=== PATIENT | female | born 1965 | race Caucasian/White ===

== ENCOUNTER → 2017-02-21 | Outpatient (CLI) | payer OTHER ==
[~2017-02-21] MED LIST: BUSP15TA PO; BUSP30TA PO; CABE0.5T HOMEMEDPO; CYCL-259 PO; DIAZ5TAB PO; DIAZ5TAB4 PO; FENT1PAT77 TP; HYDR-3241 PO; HYDR-3307 PO; IBUP-1222 PO; IBUP200C; LORA10TA72 PO; LUBI24CA5 PO; MELO7.5T5 PO; METH-356 PO; OXYM20TA14 PO; PROM25TA10 PO; SERT100T; THYR48.7 PO; THYR90TA PO
== END ==
LOC: STAR 13:04
PROVIDERS: ATTEND Surgery
DX: Z02.9 Encounter for administrative examinations, unspecified (principal)

== ENCOUNTER 2017-02-24 08:33 | Day surgery (SDC) | payer OTHER ==
[2017-02-21 14:13] LABS: HEMATOCRIT 41.3 % (34.6-47.8); HEMOGLOBIN 13.3 g/dL (11.7-16.4); WHITE BLOOD COUNT 7.4 x10^3/uL (3.4-10)
[2017-02-21 14:24] LABS: ASPARTATE AMINO TRANSFERASE 35 U/L (15-37); BLOOD UREA NITROGEN 10 mg/dL (7-18)
[~2017-02-24] VITALS: Ht 160 cm; Wt 46.3 kg
[~2017-02-24 08:33] MED LIST changes: +BUPIVACAINE/PF-EPI 0.5% 1:200K ONE
[2017-02-24] MEDS ORDERED: MIDAZOLAM 1 MG/ML, 2ML ONE (09:11)
[2017-02-24] MEDS ORDERED: FENTANYL PF 250 MCG/5ML ONE (09:11)
[2017-02-24 09:23] VITALS: BP 97/62
[2017-02-24] MEDS ORDERED: LACTATED RINGERS 1,000 ML IV SCH (09:27)
[2017-02-24] MEDS ORDERED: ROCURONIUM 10 MG/ML ONE (10:57)
[2017-02-24] MEDS ORDERED: GLYCOPYRROLATE 0.2MG/1ML ONE (10:57)
[2017-02-24] MEDS ORDERED: ONDANSETRON 2MG/ML, 2ML ONE (10:57)
[2017-02-24] MEDS ORDERED: CEFAZOLIN 1,000 MG ONE (10:57)
[2017-02-24] MEDS ORDERED: DEXAMETHASONE 4 MG/ML, 1ML ONE (10:57)
[2017-02-24] MEDS ORDERED: PROPOFOL 10 MG/ML, 20ML ONE (10:57)
[2017-02-24] MEDS ORDERED: NEOSTIGMINE 1 MG/ML, 10ML ONE (10:57)
[2017-02-24] MEDS ORDERED: hydrALAzine 20 MG/ML, 1ML IV PRN (11:00)
[2017-02-24] MEDS ORDERED: PROMETHAZINE 25 MG/ML, 1ML IV PRN (11:00)
[2017-02-24] MEDS ORDERED: ONDANSETRON 2MG/ML, 2ML IVPush PRN (11:00)
[2017-02-24] MEDS ORDERED: OXYcodone 5 MG/5 ML ORAL.SOL UDC PO PRN (11:00)
[2017-02-24] MEDS ORDERED: METOCLOPRAMIDE 5 MG/ML, 2ML IV PRN (11:00)
[2017-02-24] MEDS ORDERED: LABETALOL 5MG/ML, 20ML IV PRN (11:00)
[2017-02-24] MEDS ORDERED: FENTANYL PF 100 MCG/2ML ONE (11:54)
[2017-02-24] MEDS ORDERED: ACETAMINOPHEN 650 MG/20.3 ML UDC ONE (11:54)
[2017-02-24] MEDS ORDERED: OXYcodone 5 MG/5 ML ORAL.SOL UDC ONE (11:54)
[2017-02-24] MEDS: FENTANYL PF 100 MCG/2ML IV PRN ×2 (11:59→12:07)
[2017-02-24] MEDS ORDERED: METHADONE 10 MG TABLET PO ONE (12:00)
[2017-02-24] MEDS ORDERED: METHADONE 10 MG TABLET ONE (12:04)
[2017-02-24] MEDS ORDERED: HYDROmorphone 2 MG/ML, 1ML ONE (12:10)
[2017-02-24] MEDS: HYDROmorphone 1 MG/ML, 1ML IV PRN ×4 (12:13→12:46)
== END 2017-02-24 13:40 ==
LOC: OUT 08:33
PROVIDERS: ATTEND Surgery
DX: K43.9 Ventral hernia without obstruction or gangrene (principal); Z88.1 Allergy status to other antibiotic agents; Z88.8 Allergy status to other drugs, medicaments and biological substances
CPT/HCPCS: 36415; 49320; 71020; 80053; 85025; 93005; J0690; J1100; J1170; J2250; J2405; J2704; J2710; J3010; J7120; J3490

== ENCOUNTER 2017-03-09 06:51 | Day surgery (SDC) | payer OTHER ==
[~2017-03-09] VITALS: Ht 160 cm; Wt 46.5 kg
[2017-03-09 08:09] VITALS: BP 96/61
[2017-03-09] MEDS ORDERED: LACTATED RINGERS 1,000 ML IV SCH (08:09)
[2017-03-09] MEDS ORDERED: HYDR-879 PO (08:13)
[2017-03-09] MEDS ORDERED: MEPERIDINE/PF 25MG/0.5ML IVPush PRN (09:30)
[2017-03-09] MEDS ORDERED: OXYcodone 5 MG/5 ML ORAL.SOL UDC PO PRN ×2 (09:30→14:00)
[2017-03-09] MEDS ORDERED: ALBUTEROL/IPRATROPIUM 2.5MG/0.5MG, 3 ML NPPB PRN (09:30)
[2017-03-09] MEDS ORDERED: MIDAZOLAM 1 MG/ML, 2ML IV PRN (09:30)
[2017-03-09] MEDS ORDERED: hydrALAzine 20 MG/ML, 1ML IV PRN (09:30)
[2017-03-09] MEDS ORDERED: PROMETHAZINE 25 MG/ML, 1ML IV PRN (09:30)
[2017-03-09] MEDS ORDERED: METOPROLOL 1 MG/ML, 5ML IV PRN (09:30)
[2017-03-09] MEDS ORDERED: SUGAMMADEX 200 MG/2 ML IVPush ONE (09:35)
[2017-03-09] MEDS ORDERED: OXYcodone 5 MG/5 ML ORAL.SOL UDC ONE ×2 (09:51→13:38)
[2017-03-09] MEDS ORDERED: FENTANYL PF 100 MCG/2ML ONE ×2 (09:51→10:23)
[2017-03-09] MEDS: FENTANYL PF 100 MCG/2ML IV PRN ×4 (09:55→10:49)
[2017-03-09] MEDS ORDERED: HYDROmorphone 1 MG/ML, 1ML ONE ×2 (10:05→10:23)
[2017-03-09] MEDS: HYDROmorphone 1 MG/ML, 1ML IV PRN ×4 (10:09→10:55)
[2017-03-09] MEDS ORDERED: PROMETHAZINE 25 MG/ML, 1ML ONE (10:13)
[2017-03-09] MEDS ORDERED: MORPHINE SULFATE 4 MG/ML, 1ML ONE (11:47)
[2017-03-09] MEDS ORDERED: morphine SULFATE 10 MG/ML, 1ML IVPush PRN (12:00)
[2017-03-09] MEDS ORDERED: NEOSTIGMINE 1 MG/ML, 10ML ONE (15:59)
[2017-03-09] MEDS ORDERED: CEFAZOLIN 1,000 MG ONE (15:59)
[2017-03-09] MEDS ORDERED: GLYCOPYRROLATE 0.2MG/1ML ONE (15:59)
[2017-03-09] MEDS ORDERED: PROPOFOL 10 MG/ML, 20ML ONE (15:59)
[2017-03-09] MEDS ORDERED: ROCURONIUM 10 MG/ML ONE (15:59)
[2017-03-09] MEDS ORDERED: ONDANSETRON 2MG/ML, 2ML ONE (15:59)
[2017-03-09] MEDS ORDERED: DEXAMETHASONE 4 MG/ML, 1ML ONE (15:59)
== END 2017-03-09 13:50 ==
LOC: OUT 06:51
PROVIDERS: ATTEND Surgery
DX: K43.9 Ventral hernia without obstruction or gangrene (principal); Z98.890 Other specified postprocedural states
CPT/HCPCS: 49652; C1781; J0690; J1100; J1170; J2270; J2405; J2550; J2704; J2710; J3010; J7120; J3490